=== PATIENT | female | born 1985 | race Caucasian/White ===

== ENCOUNTER 2019-10-23 10:40 | Emergency (ER) | payer MEDICAID ==
[~2019-10-23] VITALS: Ht 152.4 cm; Wt 69.6 kg
[2019-10-23 10:47] VITALS: BP 125/84
--- NOTE | 2019-10-23 11:20 | NUR ---
THIS IS A 34 YO F W/ C/O PANIC ATTACK. PT REPORTS SHAKINESS, MUSCLE SPASMS IN FINGERS, AND FEELING HOT. PT RESTING ON GURNEY W/ CALL LIGHT IN REACH AND SIDE RAILS UPX2. CONNECTED TO ALL MONITORING. IRENE AHMADI. AWAITING ED EVAL.
[2019-10-23] MEDS ORDERED: LORazepam 2 MG/ML, 1ML ONE (11:40)
[2019-10-23] MEDS ORDERED: LORazepam 2 MG/ML, 1ML IM ONE (12:00)
[2019-10-23 12:20] LABS: ALANINE AMINOTRANSFERASE 26 U/L (12-78); ALBUMIN 4.8 g/dL (3.4-5.0); ANION GAP 11 mmol/L (5-15); CALCIUM 10.5 mg/dL (8.5-10.1); CHLORIDE 107 mmol/L (98-107); CREATININE 0.87 mg/dL (0.55-1.02)
[2019-10-23 12:22] LABS: ALKALINE PHOSPHATASE 73 U/L (45-117); BILIRUBIN,TOTAL 1.2 mg/dL (0.2-1.0); TOTAL PROTEIN 8.8 g/dL (6.4-8.2)
--- NOTE | 2019-10-23 13:21 | NUR ---
Break RN: Patient given discharge instructions and they have confirmed that they understand the instructions. Patient ambulatory with steady gait.
== END 2019-10-23 13:23 | disposition home or self-care (01) ==
LOC: ED 12:43
DX: F41.1 Generalized anxiety disorder (principal); F17.200 Nicotine dependence, unspecified, uncomplicated
CPT/HCPCS: 36415; 80053; 83735; 96372; 99283; J2060